=== PATIENT | female | born 1955 | race Caucasian/White ===

== ENCOUNTER 2018-05-27 14:39 | Emergency (ER) | payer OTHER ==
[~2018-05-27] VITALS: Ht 167.6 cm; Wt 58.0 kg
[2018-05-27] MEDS ORDERED: TORADOL PO (16:22)
[2018-05-27] MEDS ORDERED: FLEXERIL PO (16:22)
[2018-05-27 16:24] VITALS: BP 160/78
== END 2018-05-27 17:01 | disposition home or self-care (01) | DRG 563 ==
LOC: ED 14:39
DX: S39.012A Strain of muscle, fascia and tendon of lower back, initial encounter (principal); V59.50XA Passenger in pick-up truck or van injured in collision with unspecified motor vehicles in traffic accident, initial encounter; Z96.642 Presence of left artificial hip joint